=== PATIENT | male | born 1935 | race Caucasian/White ===

== ENCOUNTER 2021-05-29 03:52 | Inpatient (IN) ==
[2021-05-29] MEDS ORDERED: 0.9 % SODIUM CHLORIDE 1,000 ML IV ONE (04:11)
[2021-05-29] MEDS ORDERED: ACETAMINOPHEN 325 MG TABLET PO ONE (04:15)
--- NOTE | 2021-05-29 04:16 | Emergency Department Note ---
HPI General Chief complaint: Shortness of Breath/Dyspnea Stated complaint: shortness of breath Time Seen by Provider: 05/29/21 03:57 Source: patient, family and EMS Mode of arrival: EMS Limitations: no limitations History of Present Illness HPI Narrative: 85-year-old male with past medical history of FERMIN, aortic stenosis, diabetes, CKD, hypertension, CAD status post CABG, and BPH presenting with generalized weakness, cough, and fever. Patient states for the last 4 days he has had shortness of breath, nonproductive cough, nausea, and chills. Symptoms seemed to be getting worse so he went to urgent care yesterday where he had negative rapid Covid and influenza tests. He had a chest x-ray which showed small bilateral pleural effusions. He returned home but overnight thought he seemed more confused than usual. Patient states he also felt generally weak. No fall or head injury. This morning he continues to feel short of breath and nauseous. Does not feel dizzy at this time. No sick contacts. He has received both Covid vaccinations and a booster. He takes a baby aspirin daily. Related Data Home Medications Medication Instructions Recorded Confirmed Humulin 70/30 SUB-Q 12/14/14 05/28/21 aspirin 81 mg tablet,delayed 81 mg PO QDAY tab 12/14/14 05/29/21 release blood sugar diagnostic, disc 12/14/14 05/28/21 ferrous sulfate 325 mg (65 mg 325 mg PO BID tab 12/14/14 05/29/21 iron) tablet,delayed release hydrochlorothiazide 25 mg tablet 25 mg PO QDAY tab 12/14/14 05/28/21 lorazepam 1 mg tablet 1 mg PO .as directed PRN tab 12/14/14 05/29/21 potassium chloride 10 mEq 10 meq PO QDAY cap 12/14/14 05/29/21 capsule,extended release sennosides 8.6 mg-docusate sodium 1 tab PO QHS PRN tab 12/14/14 05/28/21 50 mg tablet simvastatin 20 mg tablet 20 mg PO QPM tab 12/14/14 05/29/21 zolpidem 10 mg tablet 10 mg PO QHS PRN tab 02/16/21 05/29/21 Previous Rx's Medication Instructions Recorded finasteride 5 mg tablet 5 mg PO QDAY 90 Days #90 tab 01/29/21 tamsulosin 0.4 mg capsule 0.8 mg PO Q24H #180 cap 02/16/21 doxycycline monohydrate 100 mg 100 mg PO BID 7 Days #14 cap 05/28/21 capsule ondansetron 8 mg disintegrating 8 mg PO Q8H PRN #10 tab 05/28/21 tablet Allergies Allergy/AdvReac Type Severity Reaction Status Date / Time metoprolol [METOPROLOL] AdvReac Intermediate FELT Verified 05/29/21 03:55 "CRAPPY", LETHARGIC, NO APPETITE Review of Systems ROS ROS Narrative: Narrative: Constitutional: Reports chills; Denies fever Eyes: Denies vision change ENT ED: Denies throat pain Cardiovascular: Denies chest pain or palpitations Respiratory: Reports shortness of breath and cough Gastrointestinal: Reports nausea; Denies abdominal pain or vomiting Genitourinary: Denies dysuria, frequency or hematuria Musculoskeletal: Denies back pain or joint swelling Integumentary: Denies rash Neurological: Reports weakness and dizziness; Denies headache or numbness Psychiatric: Denies anxiety Hematological/Lymphatic: Denies easy bruising PFSH Narrative Patient History Narrative: Narrative: Medical/Surgical/Family History All Active Problems (Updated 05/29/21 @ 07:18 by Luis Fernando Vines MD) Weakness (Acute) Viral syndrome (Acute) Actinic keratitis (Acute) Aortic stenosis (Acute) FERMIN (obstructive sleep apnea) (Acute) Colon polyps (Acute) DMII (diabetes mellitus, type 2) (Acute) Dupuytren's contracture (Acute) Edema (Acute) Hypertension, essential (Acute) Hypoxemia (Acute) Nocturia (Acute) Obesity (Acute) Plantar wart (Acute) Premature beats (Acute) Spinal stenosis (Acute) Syncope and collapse (Acute) Chronic renal failure (Acute) Hx of appendectomy (Acute) History of back surgery (Acute) H/O coronary artery bypass surgery (Acute) H/O gastric bypass (Acute) LAP-BAND surgery status (Acute) History of open heart surgery (Acute) H/O shoulder surgery (Acute) BPH w urinary obs/LUTS (Acute) Phimosis (Acute) Medical History (Updated 05/29/21 @ 07:18 by Luis Fernando Vines MD) Actinic keratitis Aortic stenosis Chronic renal failure Colon polyps DMII (diabetes mellitus, type 2) Dupuytren's contracture Edema Hematuria Hypertension, essential Hypoxemia Nocturia Obesity FERMIN (obstructive sleep apnea) polyps Plantar wart Premature beats Spinal stenosis Syncope and collapse Viral syndrome Surgical History H/O coronary artery bypass surgery H/O gastric bypass H/O shoulder surgery History of back surgery History of open heart surgery Hx of appendectomy LAP-BAND surgery status Family History Grandfather-maternal Type 2 diabetes mellitus Grandmother- maternal Type 2 diabetes mellitus Mother Type 2 diabetes mellitus Myocardial Infarction Social History Smoking Status: Former smoker Alcohol Intake Frequency: a few times a week Exam Narrative Narrative: Narrative: General Limitations: no limitations General appearance: Present alert and in no apparent distress Head Head: Present atraumatic and normocephalic Eye Eye: Present normal appearance, PERRL and EOMI; Absent scleral icterus, conjunctival injection or nystagmus ENT ENT: Present normal oropharynx and mucous membranes moist Neck Neck: Present full ROM and trachea midline Chest Chest: Present symmetric chest wall rise and other (Midline sternal scar noted) Respiratory Respiratory: Present other (Fine rales noted at bilateral bases); Absent respi ratory distress, wheezes, stridor or accessory muscle use Cardiovascular Cardiovascular: Present regular rate, normal rhythm and systolic murmur; Absent diastolic murmur Adbominal Abdominal: Present soft; Absent distention, tenderness, guarding, rebound or rigidity Extremities Extremities: Present other (1+ bilateral pitting edema of lower extremities) Back Back: Present normal inspection; Absent CVA tenderness (R) or CVA tenderness (L) Neurological Neurological: Present alert, oriented X3 and CN II-XII intact; Absent motor sensory deficit Expanded Neurological Patient oriented to: Present person, place and time Speech: Absent dysarthria CEREBELLAR FUNCTION: finger to nose: Normal Motor strength - LUE: 5/5 Motor strength - RUE: 5/5 Motor strength - LLE: 5/5 Motor strength - RLE: 5/5 SENSORY EXAM UPPER EXTREMITY: Normal: light touch SENSORY EXAM LOWER EXTREMITY: Normal: light touch Coma Scale Eye Opening: Spontaneous Coma Scale Motor Response: Obeys Commands Coma Scale Verbal Response: Oriented Coma Scale Total: 15 Psychiatric Psychiatric: Present normal affect and normal mood Skin Skin: Present warm (WNL) and dry Course Vital Signs Vital signs: Vital Signs Temperature 100.1 F H 05/29/21 03:55 Pulse Rate 82 05/29/21 03:55 Respiratory Rate 22 05/29/21 03:55 Blood Pressure 198/79 05/29/21 03:55 Pulse Oximetry (%) 97 05/29/21 03:55 Temperature 100.1 F H 05/29/21 04:26 Pulse Rate 71 05/29/21 06:41 Respiratory Rate 22 05/29/21 03:55 Blood Pressure 197/87 05/29/21 06:31 Pulse Oximetry (%) 97 05/29/21 06:41 MDM MDM Narrative Medical decision making narrative: 85-year-old male presenting with weakness, nausea, cough, and shortness of breath. He is satting between 90 and 93% on room air. Initially hypertensive to 202/92 and with a low-grade fever to 100.4F. No focal neurologic deficits noted on exam. He is not dizzy at this time. Normal saline bolus given. EKG shows no acute ischemic changes. P.o. Tylenol given for low-grade fever. Will obtain labs, imaging, UA, blood cultures and lactate. Signed out to onccricket WHITMORE, Dr. Casillas. Lab Data Result diagrams: 05/29/21 04:40 05/29/21 04:30 Labs: Lab Results 05/29/21 05/29/21 05/29/21 Range/Units 04:30 04:40 04:40 WBC 6.7 (4.5-11.0) K/mcL RBC 3.51 L (4.63-6.08) M/mcL Hgb 11.4 L (13.7-17.5) g/dL Hct 34.0 L (40.1-51.0) % MCV 96.9 (80.0-100.0) fL MCH 32.5 (26.0-34.0) pg MCHC 33.5 (31.0-36.0) g/dL RDW 12.6 (11.5-14.5) % Plt Count 130 L (140-440) K/mcL MPV 10.6 H (7.4-10.4) fL Neut % (Auto) 78.7 H (38.0-78.0) % Lymph % (Auto) 8.2 L (15.5-49.0) % [place] % (Auto) 11.9 (1.0-12.0) % Eos % (Auto) 0.9 (0.0-7.0) % Baso % (Auto) 0.3 (0.0-2.0) % Lymph # (Auto) 0.55 L (1.50-4.80) K/mcL [place] # (Auto) 0.80 (0.10-0.90) K/mcL Eos # (Auto) 0.06 (0.00-0.70) K/mcL Baso # (Auto) 0.02 (0.00-0.30) K/mcL Absolute Neutrophils 5.30 (1.80-8.00) K/mcL VBG Lactic Acid 1.4 (0.5-2.0) mmol/L Sodium 134 (133-145) mmol/L Potassium 4.2 (3.3-5.1) mmol/L Chloride 100 (96-108) mmol/L Carbon Dioxide 22 (22-30) mmol/L Anion Gap 12.0 (8.0-16.0) BUN 40 H (8-23) mg/dL Creatinine 3.4 H (0.7-1.2) mg/dL GFR Calculation 15 Glucose 178 H (70-105) mg/dL Calcium 9.7 (8.6-10.4) mg/dL Total Bilirubin 0.6 (0.1-1.0) mg/dL AST 27 (<40) U/L ALT 16 (<40) U/L Alkaline Phosphatase 64 (39-117) U/L Troponin T (<0.03) ng/mL NT-Pro-B Natriuret Pep 3119.0 H (<450.0) pg/mL Total Protein 6.7 (5.9-8.4) gm/dL Albumin 3.4 (3.2-5.2) gm/dL Globulin 3.3 (2.2-3.7) gm/dL Albumin/Globulin Ratio 1.0 (1.0-2.3) 05/29/21 Range/Units 04:43 WBC (4.5-11.0) K/mcL RBC (4.63-6.08) M/mcL Hgb (13.7-17.5) g/dL Hct (40.1-51.0) % MCV (80.0-100.0) fL MCH (26.0-34.0) pg MCHC (31.0-36.0) g/dL RDW (11.5-14.5) % Plt Count (140-440) K/mcL MPV (7.4-10.4) fL Neut % (Auto) (38.0-78.0) % Lymph % (Auto) (15.5-49.0) % [place] % (Auto) (1.0-12.0) % Eos % (Auto) (0.0-7.0) % Baso % (Auto) (0.0-2.0) % Lymph # (Auto) (1.50-4.80) K/mcL [place] # (Auto) (0.10-0.90) K/mcL Eos # (Auto) (0.00-0.70) K/mcL Baso # (Auto) (0.00-0.30) K/mcL Absolute Neutrophils (1.80-8.00) K/mcL VBG Lactic Acid (0.5-2.0) mmol/L Sodium (133-145) mmol/L Potassium (3.3-5.1) mmol/L Chloride (96-108) mmol/L Carbon Dioxide (22-30) mmol/L Anion Gap (8.0-16.0) BUN (8-23) mg/dL Creatinine (0.7-1.2) mg/dL GFR Calculation Glucose (70-105) mg/dL Calcium (8.6-10.4) mg/dL Total Bilirubin (0.1-1.0) mg/dL AST (<40) U/L ALT (<40) U/L Alkaline Phosphatase (39-117) U/L Troponin T 0.08 H* (<0.03) ng/mL NT-Pro-B Natriuret Pep (<450.0) pg/mL Total Protein (5.9-8.4) gm/dL Albumin (3.2-5.2) gm/dL Globulin (2.2-3.7) gm/dL Albumin/Globulin Ratio (1.0-2.3) Radiology Data Radiology results reviewed: Yes I reviewed the patient's radiology results. Radiology results narrative: Ordering Physician:Luis Fernando Vines M.D. Date of Service:05/29/21 Procedure(s):CT head/brain wo con INDICATION: dizziness, weakness, confusion COMPARISON: None. TECHNIQUE: Axial noncontrast-enhanced images through the brain. Sagittally and coronally reformatted images. FINDINGS: Cerebral hemispheres:No acute intra-axial hemorrhage. No focal intra-axial attenuation abnormality or localized mass effect. Brain volume is within normal limits for age. Brainstem and cerebellum:No intra-axial abnormality Extra-axial:No acute hemorrhage. No subdural or epidural hematoma. No subarachnoid hemorrhage. Basilar cisterns are normal Calvarial:No calvarial fracture. No lytic lesion Temporal bones are negative. No destructive lesions Soft tissue, orbits, sinuses:Orbits and visualized facial soft tissues and paranasal sinuses are negative IMPRESSION: Negative noncontrast enhanced brain CT scan EKG Data EKG #1: EKG attestation: Yes I reviewed and interpreted this EKG. and Yes There are no EKG findings of acute coronary syndrome EKG results narrative: Normal sinus rhythm at [address] elevation or depression. Interpretation: no acute changes Discharge Plan Patient/Caregiver Discharge Instructions Pt seen by LEVI MAKER/PA only: No Clinical Impression: Weakness Patient Disposition: Still a Patient Follow up with: Yovanny Higuera MD [Primary Care Provider] - Prescriptions: No Action finasteride 5 mg tablet 5 mg PO QDAY 90 Days Qty: 90 6RF potassium chloride 10 mEq capsule, extended release 10 meq PO QDAY 0RF sennosides-docusate sodium 8.6-50 mg tablet 1 tab PO QHS PRN (Reason: constipation) 0RF aspirin 81 mg tablet,delayed release (DR/EC) 81 mg PO QDAY 0RF simvastatin 20 mg tablet 20 mg PO QPM 0RF hydrochlorothiazide 25 mg tablet 25 mg PO QDAY 0RF lorazepam 1 mg tablet 1 mg PO .as directed PRN (Reason: Anxiety) 0RF Rx Instructions: 1 mg PO .as directed PRN (DME) blood sugar diagnostic, disc strip See Dose Instructions .ROUTE .MEDSUPPLY 0RF Rx Instructions: As directed Humulin 70/30 SUB-Q 0RF Label Comments: as per insulin protocol ferrous sulfate 325 mg (65 mg iron) tablet,delayed release (DR/EC) 325 mg PO BID 0RF zolpidem 10 mg tablet 10 mg PO QHS PRN (Reason: Insomnia) 0RF doxycycline monohydrate 100 mg capsule 100 mg PO BID 7 Days Qty: 14 0RF Rx Instructions: Take with food. ondansetron 8 mg tablet,disintegrating 8 mg PO Q8H PRN (Reason: nausea and vomiting) Qty: 10 0RF tamsulosin 0.4 mg capsule 0.8 mg PO Q24H Qty: 180 3RF
[2021-05-29 05:52] LABS: Basophils # (Auto) 0.02 K/mcL (0.00-0.30); Basophils % (Auto) 0.3 % (0.0-2.0); Eosinophils # (Auto) 0.06 K/mcL (0.00-0.70); Eosinophils % (Auto) 0.9 % (0.0-7.0); Hemoglobin 11.4 g/dL (13.7-17.5); Lymphocytes # (Auto) 0.55 K/mcL (1.50-4.80); Lymphocytes % (Auto) 8.2 % (15.5-49.0); Mean Cell Volume 96.9 fL (80.0-100.0); Mean Corpuscular HGB Conc 33.5 g/dL (31.0-36.0); Mean Platelet Volume 10.6 fL (7.4-10.4); Monocytes % (Auto) 11.9 % (1.0-12.0); Neutrophils % (Auto) 78.7 % (38.0-78.0); Platelet Count 130 K/mcL (140-440); RBC 3.51 M/mcL (4.63-6.08); Red Cell Distribution Width 12.6 % (11.5-14.5); WBC 6.7 K/mcL (4.5-11.0)
[2021-05-29] MEDS ORDERED: cloNIDine HCL 0.1 MG TABLET PO SCH (06:00)
[2021-05-29 06:15] LABS: ALT/SGPT 16 U/L (<40); AST/SGOT 27 U/L (<40); Albumin 3.4 gm/dL (3.2-5.2); Alkaline Phosphatase 64 U/L (39-117); Bilirubin,Total 0.6 mg/dL (0.1-1.0); Blood Urea Nitrogen 40 mg/dL (8-23); Calcium 9.7 mg/dL (8.6-10.4); Carbon Dioxide 22 mmol/L (22-30); Chloride 100 mmol/L (96-108); Globulin 3.3 gm/dL (2.2-3.7); Glomerular Filtration Rate 15; Glucose 178 mg/dL (70-105)
--- NOTE | 2021-05-29 06:20 | Cat Scan Report ---
INDICATION: dizziness, weakness, confusion COMPARISON: None. TECHNIQUE: Axial noncontrast-enhanced images through the brain. Sagittally and coronally reformatted images. FINDINGS: Cerebral hemispheres:No acute intra-axial hemorrhage. No focal intra-axial attenuation abnormality or localized mass effect. Brain volume is within normal limits for age. Brainstem and cerebellum:No intra-axial abnormality Extra-axial:No acute hemorrhage. No subdural or epidural hematoma. No subarachnoid hemorrhage. Basilar cisterns are normal Calvarial:No calvarial fracture. No lytic lesion Temporal bones are negative. No destructive lesions Soft tissue, orbits, sinuses:Orbits and visualized facial soft tissues and paranasal sinuses are negative IMPRESSION: Negative noncontrast enhanced brain CT scan The exam was performed using radiation dose optimization techniques including, but not limited to, automated exposure control, adjustment of the mA and/or kV according to patient size and use of iterative reconstruction technique. Interpreted and Authenticated by: Constantin Saldaña 05/29/21
--- NOTE | 2021-05-29 07:50 | Emergency Department Note ---
Course Course Course Narrative: I assumed care from Dr. Vines at the change of shift. I evaluated the patient in person at 7:40 AM. He is resting comfortably in bed and awakens to verbal stimuli. He has been experiencing several days of generalized malaise chills cough shortness of breath and mild confusion that his is appreciated. On exam, he is in no respiratory distress with oxygen saturations in the low 90s on 2 L supplemental oxygen via nasal cannula. He is oriented to time place and situation and is able to name the current president as well as the past 2 presidents but does have some difficulty remembering the date and the month. Vital Signs Vital signs: Vital Signs Temperature 100.1 F H 05/29/21 03:55 Pulse Rate 82 05/29/21 03:55 Respiratory Rate 22 05/29/21 03:55 Blood Pressure 198/79 05/29/21 03:55 Pulse Oximetry (%) 97 05/29/21 03:55 Temperature 100.1 F H 05/29/21 07:40 Pulse Rate 69 05/29/21 07:40 Respiratory Rate 22 05/29/21 07:40 Blood Pressure 155/89 05/29/21 07:40 Pulse Oximetry (%) 95 05/29/21 07:40 MDM MDM Narrative Medical decision making narrative: Narrative: Lab Data Result diagrams: 05/29/21 04:40 05/29/21 04:30 Labs: Lab Results 05/29/21 05/29/21 05/29/21 Range/Units 04:30 04:40 04:40 WBC 6.7 (4.5-11.0) K/mcL RBC 3.51 L (4.63-6.08) M/mcL Hgb 11.4 L (13.7-17.5) g/dL Hct 34.0 L (40.1-51.0) % MCV 96.9 (80.0-100.0) fL MCH 32.5 (26.0-34.0) pg MCHC 33.5 (31.0-36.0) g/dL RDW 12.6 (11.5-14.5) % Plt Count 130 L (140-440) K/mcL MPV 10.6 H (7.4-10.4) fL Neut % (Auto) 78.7 H (38.0-78.0) % Lymph % (Auto) 8.2 L (15.5-49.0) % [place] % (Auto) 11.9 (1.0-12.0) % Eos % (Auto) 0.9 (0.0-7.0) % Baso % (Auto) 0.3 (0.0-2.0) % Lymph # (Auto) 0.55 L (1.50-4.80) K/mcL [place] # (Auto) 0.80 (0.10-0.90) K/mcL Eos # (Auto) 0.06 (0.00-0.70) K/mcL Baso # (Auto) 0.02 (0.00-0.30) K/mcL Absolute Neutrophils 5.30 (1.80-8.00) K/mcL VBG Lactic Acid 1.4 (0.5-2.0) mmol/L Sodium 134 (133-145) mmol/L Potassium 4.2 (3.3-5.1) mmol/L Chloride 100 (96-108) mmol/L Carbon Dioxide 22 (22-30) mmol/L Anion Gap 12.0 (8.0-16.0) BUN 40 H (8-23) mg/dL Creatinine 3.4 H (0.7-1.2) mg/dL GFR Calculation 15 Glucose 178 H (70-105) mg/dL Calcium 9.7 (8.6-10.4) mg/dL Total Bilirubin 0.6 (0.1-1.0) mg/dL AST 27 (<40) U/L ALT 16 (<40) U/L Alkaline Phosphatase 64 (39-117) U/L Troponin T (<0.03) ng/mL NT-Pro-B Natriuret Pep 3119.0 H (<450.0) pg/mL Total Protein 6.7 (5.9-8.4) gm/dL Albumin 3.4 (3.2-5.2) gm/dL Globulin 3.3 (2.2-3.7) gm/dL Albumin/Globulin Ratio 1.0 (1.0-2.3) 05/29/21 Range/Units 04:43 WBC (4.5-11.0) K/mcL RBC (4.63-6.08) M/mcL Hgb (13.7-17.5) g/dL Hct (40.1-51.0) % MCV (80.0-100.0) fL MCH (26.0-34.0) pg MCHC (31.0-36.0) g/dL RDW (11.5-14.5) % Plt Count (140-440) K/mcL MPV (7.4-10.4) fL Neut % (Auto) (38.0-78.0) % Lymph % (Auto) (15.5-49.0) % [place] % (Auto) (1.0-12.0) % Eos % (Auto) (0.0-7.0) % Baso % (Auto) (0.0-2.0) % Lymph # (Auto) (1.50-4.80) K/mcL [place] # (Auto) (0.10-0.90) K/mcL Eos # (Auto) (0.00-0.70) K/mcL Baso # (Auto) (0.00-0.30) K/mcL Absolute Neutrophils (1.80-8.00) K/mcL VBG Lactic Acid (0.5-2.0) mmol/L Sodium (133-145) mmol/L Potassium (3.3-5.1) mmol/L Chloride (96-108) mmol/L Carbon Dioxide (22-30) mmol/L Anion Gap (8.0-16.0) BUN (8-23) mg/dL Creatinine (0.7-1.2) mg/dL GFR Calculation Glucose (70-105) mg/dL Calcium (8.6-10.4) mg/dL Total Bilirubin (0.1-1.0) mg/dL AST (<40) U/L ALT (<40) U/L Alkaline Phosphatase (39-117) U/L Troponin T 0.08 H* (<0.03) ng/mL NT-Pro-B Natriuret Pep (<450.0) pg/mL Total Protein (5.9-8.4) gm/dL Albumin (3.2-5.2) gm/dL Globulin (2.2-3.7) gm/dL Albumin/Globulin Ratio (1.0-2.3) Discharge Plan Patient/Caregiver Discharge Instructions Pt seen by ASSISTED LIVING CARE MANAGER/PA only: No Clinical Impression: Weakness Patient Disposition: Still a Patient Follow up with: Yovanny Higuera MD [Primary Care Provider] - Prescriptions: No Action finasteride 5 mg tablet 5 mg PO QDAY 90 Days Qty: 90 6RF potassium chloride 10 mEq capsule, extended release 10 meq PO QDAY 0RF sennosides-docusate sodium 8.6-50 mg tablet 1 tab PO QHS PRN (Reason: constipation) 0RF aspirin 81 mg tablet,delayed release (DR/EC) 81 mg PO QDAY 0RF simvastatin 20 mg tablet 20 mg PO QPM 0RF hydrochlorothiazide 25 mg tablet 25 mg PO QDAY 0RF lorazepam 1 mg tablet 1 mg PO .as directed PRN (Reason: Anxiety) 0RF Rx Instructions: 1 mg PO .as directed PRN (DME) blood sugar diagnostic, disc strip See Dose Instructions .ROUTE .MEDSUPPLY 0RF Rx Instructions: As directed Humulin 70/30 SUB-Q 0RF Label Comments: as per insulin protocol ferrous sulfate 325 mg (65 mg iron) tablet,delayed release (DR/EC) 325 mg PO BID 0RF zolpidem 10 mg tablet 10 mg PO QHS PRN (Reason: Insomnia) 0RF doxycycline monohydrate 100 mg capsule 100 mg PO BID 7 Days Qty: 14 0RF Rx Instructions: Take with food. ondansetron 8 mg tablet,disintegrating 8 mg PO Q8H PRN (Reason: nausea and vomiting) Qty: 10 0RF tamsulosin 0.4 mg capsule 0.8 mg PO Q24H Qty: 180 3RF
--- NOTE | 2021-05-29 08:13 | XRay Report ---
INDICATION: CHF TECHNIQUE: AP portable upright chest x-ray COMPARISON: Previous chest x-ray dated 05/28/2021 FINDINGS:Previous median sternotomy and coronary artery bypass procedure Lungs:Lungs are negative. No focal pulmonary parenchymal infiltrate or mass Heart, vascular:No significant cardiomegaly. Pulmonary vascularity is normal. No pulmonary edema or pulmonary congestion Mediastinum, marc:No mediastinal widening. No hilar mass Pleura:No pleural fluid. No pleural-based mass or calcification Skeletal:Nonacute healed right rib fractures. Degenerative joint disease in the right acromioclavicular joint. Previous left Fernando procedure IMPRESSION: Negative AP chest x-ray Interpreted and Authenticated by: Constantin Saldaña 05/29/21
[2021-05-29] MEDS ORDERED: FUROSEMIDE 100 MG/10 ML VIAL IV ONE (08:39)
[2021-05-29 09:06] LABS: Appearance,Urine HAZY (Clear); Bilirubin,Urine Negative (Negative); Color,Urine YELLOW; Culture Indicated,Urine No; Glucose,Urine (UA) 50 mg/dL (Negative); Ketones,Urine 5 mg/dL (Negative); Leukocyte Esterase,Urine 25 /uL (Negative); Mucus,Urine FEW /hpf; Nitrate,Urine Negative (Negative); Protein,Urine 100 mg/dL (Negative); Specific Gravity,Urine 1.015 (1.000-1.035); Urine Blood Negative (Negative); Urine RBC 1 /hpf (0-3); Urine Squamous Epithelial Cell 2 /hpf (0-4); Urine Transitional Epi Cells < 1 /hpf (0-2); Urine WBC 5 /hpf (0-4); Urobilinogen,Urine Negative
--- NOTE | 2021-05-29 11:53 | Cat Scan Report ---
INDICATION: pneumonia COMPARISON: None TECHNIQUE: Axial noncontrast enhanced images through the chest. Sagittally and coronally reformatted images. MIP reformatted images. FINDINGS: Lungs:Mild bilateral lower lobe pulmonary parenchymal density consistent with atelectasis. Lungs are otherwise negative. No parenchymal mass. Mediastinum, vascular:No pathologic mediastinal or hilar adenopathy Thoracic aorta is negative. No aneurysmal dilatation Main pulmonary artery measures 3.2 cm in cross-sectional diameter. This may indicate pulmonary arterial hypertension Heart:There is left atrial enlargement. No pericardial effusion. There is extensive coronary artery calcification. Patient has undergone previous coronary artery bypass Pleura:Small bilateral pleural effusions, left larger than right Axilla, supraclavicular regions, chest wall:No axillary or supraclavicular adenopathy. Musculoskeletal:No thoracic compression fractures. Previous median sternotomy. No rib fractures. Upper Abdomen:Small calcified gallstones in the dependent portion of the gallbladder lumen IMPRESSION: 1. Severe coronary artery calcification. Previous coronary artery bypass procedure 2. Small bilateral pleural effusions, left larger than right. There is mild dependent bilateral lower lobe atelectasis 3. Left atrial enlargement 4. Mildly enlarged pulmonary artery consistent with pulmonary arterial hypertension 5. Cholelithiasis The exam was performed using radiation dose optimization techniques including, but not limited to, automated exposure control, adjustment of the mA and/or kV according to patient size and use of iterative reconstruction technique. Interpreted and Authenticated by: Constantin Saldaña 05/29/21
[2021-05-29] MEDS ORDERED: ALBUTEROL SULFATE 200 PUFF INHALER INH PRN (13:51)
[2021-05-29] MEDS ORDERED: MELATONIN 3 MG TABLET PO PRN (13:51)
[2021-05-29] MEDS ORDERED: MAGNESIUM SULFATE 2 GM/50 ML BAG IV PRN (13:51)
[2021-05-29] MEDS ORDERED: guaiFENesin/CODEINE 10 ML UDC PO PRN (13:51)
[2021-05-29] MEDS ORDERED: ONDANSETRON 4 MG/2 ML VIAL IV PRN (13:51)
[2021-05-29] MEDS ORDERED: ACETAMINOPHEN 325 MG TABLET PO PRN (13:51)
[2021-05-29] MEDS ORDERED: ONDANSETRON 4 MG ODT TABLET SL PRN (13:51)
[2021-05-29] MEDS ORDERED: DEXTROSE 31 GM ORAL.SUSP PO PRN (13:51)
[2021-05-29] MEDS ORDERED: POTASSIUM CHLORIDE 20 MEQ PACKET PO PRN (13:51)
[2021-05-29] MEDS ORDERED: METOPROLOL TARTRATE 5 MG/5 ML VIAL IV PRN (13:51)
[2021-05-29] MEDS ORDERED: ACETAMINOPHEN 650 MG/65 ML BAG IV PRN (13:51)
[2021-05-29] MEDS ORDERED: POTASSIUM CHLORIDE 40 MEQ in DEXTROSE 5% IN WATER 500 ML IV PRN (13:51)
[2021-05-29] MEDS ORDERED: POLYETHYLENE GLYCOL 3350 17 GM PACKET PO PRN (13:51)
[2021-05-29] MEDS ORDERED: ONDANSETRON 8 MG PO PRN (13:51)
[2021-05-29] MEDS ORDERED: DEXTROSE 50% 50 ML VIAL IV PRN (13:51)
--- NOTE | 2021-05-29 13:55 | Internal Med History&Physical ---
HPI History of Present Illness Patient information: Note initiated : 05/29/21 at 1:55 pm Service Date, if different from initiated Date: [] Patient: Manny Flaherty a 85 y/o M admitted on 05/29/21 for shortness of breath. Chief Complaint: [] Chief complaint: Weakness nausea shortness of breath History of present illness: Mr. Flaherty is a 85 year old M with a history of DM type II/HLD/HTN/BPH who presents to the ER with 5 days onset of worsening shortness of breath, malaise, weakness, runny nose, body ache nausea and loss of appetite. Patient endorses to subjective fever but denies shaking chills, rash, diarrhea, joint pain or photophobia. With worsening symptoms and inability to function he presents to the urgent care for evaluation. After initial evaluation he was discharged on doxycycline for suspected pneumonia. However his symptoms continue to persist with increasing shortness of breath and he returns to ER today. Repeat work-up was consistent with hypoxia requiring 3 L oxygen and worsening renal function. CT chest consistent with bilateral effusion/basilar infiltrates. Patient was started on diuretics in light of elevated BNP Hospitalist service was consulted in light of suspected pneumonia/CHF and hypoxic respiratory failure At the time of my evaluation patient is alert and oriented. He was able to endorse history as above. He denies sick contacts but endorses to URI symptom including runny nose. He denies changes in medications. Review of systems 10 point review system was performed and is negative except as above PFSH PFSH All Active Problems (Updated 05/29/21 @ 07:18 by Luis Fernando Vines MD) Weakness (Acute) Viral syndrome (Acute) Actinic keratitis (Acute) Aortic stenosis (Acute) FERMIN (obstructive sleep apnea) (Acute) Colon polyps (Acute) DMII (diabetes mellitus, type 2) (Acute) Dupuytren's contracture (Acute) Edema (Acute) Hypertension, essential (Acute) Hypoxemia (Acute) Nocturia (Acute) Obesity (Acute) Plantar wart (Acute) Premature beats (Acute) Spinal stenosis (Acute) Syncope and collapse (Acute) Chronic renal failure (Acute) Hx of appendectomy (Acute) History of back surgery (Acute) H/O coronary artery bypass surgery (Acute) H/O gastric bypass (Acute) LAP-BAND surgery status (Acute) History of open heart surgery (Acute) H/O shoulder surgery (Acute) BPH w urinary obs/LUTS (Acute) Phimosis (Acute) Medical History (Updated 05/29/21 @ 07:18 by Luis Fernando Vines MD) Actinic keratitis Aortic stenosis Chronic renal failure Colon polyps DMII (diabetes mellitus, type 2) Dupuytren's contracture Edema Hematuria Hypertension, essential Hypoxemia Nocturia Obesity FERMIN (obstructive sleep apnea) polyps Plantar wart Premature beats Spinal stenosis Syncope and collapse Viral syndrome Surgical History H/O coronary artery bypass surgery H/O gastric bypass H/O shoulder surgery History of back surgery History of open heart surgery Hx of appendectomy LAP-BAND surgery status Family History Grandfather-maternal Type 2 diabetes mellitus Grandmother- maternal Type 2 diabetes mellitus Mother Type 2 diabetes mellitus Myocardial Infarction Social History alcohol intake frequency: a few times a week MEDS/ALLERGIES Home Medications and Allergies Home Medications Medication Instructions Recorded Confirmed Type Humulin 70/30 SUB-Q 12/14/14 05/28/21 History aspirin 81 mg tablet,delayed 81 mg PO QDAY tab 12/14/14 05/29/21 History release blood sugar diagnostic, disc 12/14/14 05/28/21 History ferrous sulfate 325 mg (65 mg 325 mg PO BID tab 12/14/14 05/29/21 History iron) tablet,delayed release lorazepam 1 mg tablet 1 mg PO .as directed PRN tab 12/14/14 05/29/21 History simvastatin 20 mg tablet 20 mg PO QPM tab 12/14/14 05/29/21 History finasteride 5 mg tablet 5 mg PO QDAY 90 Days #90 tab 01/29/21 05/29/21 Rx tamsulosin 0.4 mg capsule 0.8 mg PO Q24H #180 cap 02/16/21 05/29/21 Rx zolpidem 10 mg tablet 10 mg PO QHS PRN tab 02/16/21 05/29/21 History doxycycline monohydrate 100 mg 100 mg PO BID 7 Days #14 cap 05/28/21 05/29/21 Rx capsule ondansetron 8 mg disintegrating 8 mg PO Q8H PRN #10 tab 05/28/21 05/29/21 Rx tablet Allergies Allergy/AdvReac Type Severity Reaction Status Date / Time metoprolol [METOPROLOL] AdvReac Intermediate FELT Verified 05/29/21 03:55 "CRAPPY", LETHARGIC, NO APPETITE EXAM Constitutional Vitals: Temp Pulse Resp BP Pulse Ox 100.1 F H 56 L 22 188/91 98 05/29/21 07:40 05/29/21 12:45 05/29/21 07:40 05/29/21 13:00 05/29/21 12:45 Alert oriented, minimal anxiety Head normocephalic Oral cavity moist No ear or nose discharge Eye no subconjunctival pallor, movement symmetrical S1-S2 occasionally irregular Nonlabored breathing on 3 L oxygen Nondistended nontender abdomen Lower extremity no cyanosis clubbing or joint swelling Skin no suspicious lesion Psych anxious but no hallucination Neuro normal higher function, GCS 14 DATA Data Completed and Pending Labs: Labs from last 24 hours 05/29/21 05/29/21 05/29/21 07:30 04:43 04:40 WBC RBC Hgb Hct MCV MCH MCHC RDW Plt Count MPV Neut % (Auto) Lymph % (Auto) [place] % (Auto) Eos % (Auto) Baso % (Auto) Lymph # (Auto) [place] # (Auto) Eos # (Auto) Baso # (Auto) Absolute Neutrophils VBG Lactic Acid 1.4 Sodium Potassium Chloride Carbon Dioxide Anion Gap BUN Creatinine GFR Calculation Glucose Calcium Total Bilirubin AST ALT Alkaline Phosphatase Troponin T 0.08 H* NT-Pro-B Natriuret Pep Total Protein Albumin Globulin Albumin/Globulin Ratio Urine Color Yellow Urine Appearance Hazy A Urine pH 6.0 Ur Specific [place] 1.015 Urine Protein 100 A Urine Glucose (UA) 50 A Urine Ketones 5 A Urine Occult Blood Negative Urine Nitrate Negative Urine Bilirubin Negative Urine Urobilinogen Negative Ur Leukocyte Esterase 25 A Urine RBC 1 Urine WBC 5 H Ur Squamous Epith Cells 2 Ur Transition Epith Cell < 1 Urine Bacteria None Urine Mucus Few A Ur Culture Indicated? No 05/29/21 05/29/21 04:40 04:30 WBC 6.7 RBC 3.51 L Hgb 11.4 L Hct 34.0 L MCV 96.9 MCH 32.5 MCHC 33.5 RDW 12.6 Plt Count 130 L MPV 10.6 H Neut % (Auto) 78.7 H Lymph % (Auto) 8.2 L [place] % (Auto) 11.9 Eos % (Auto) 0.9 Baso % (Auto) 0.3 Lymph # (Auto) 0.55 L [place] # (Auto) 0.80 Eos # (Auto) 0.06 Baso # (Auto) 0.02 Absolute Neutrophils 5.30 VBG Lactic Acid Sodium 134 Potassium 4.2 Chloride 100 Carbon Dioxide 22 Anion Gap 12.0 BUN 40 H Creatinine 3.4 H GFR Calculation 15 Glucose 178 H Calcium 9.7 Total Bilirubin 0.6 AST 27 ALT 16 Alkaline Phosphatase 64 Troponin T NT-Pro-B Natriuret Pep 3119.0 H Total Protein 6.7 Albumin 3.4 Globulin 3.3 Albumin/Globulin Ratio 1.0 Urine Color Urine Appearance Urine pH Ur Specific [place] Urine Protein Urine Glucose (UA) Urine Ketones Urine Occult Blood Urine Nitrate Urine Bilirubin Urine Urobilinogen Ur Leukocyte Esterase Urine RBC Urine WBC Ur Squamous Epith Cells Ur Transition Epith Cell Urine Bacteria Urine Mucus Ur Culture Indicated? A/P Narrative A/P Narrative: * Suspected COVID-19 pneumonia-supplemental oxygen/Covid PCR/influenza test,, antibiotic coverage. * Acute respiratory failure with hypoxia continue supplemental oxygen, pulmonary toilet/bronchodilators, rule out cardiac etiology, echocardiogram * History of DM type II continue basal panel insulin * History of CKD stage IV, continue monitor renal function and avoid nephrotoxins * Hyperlipidemia continue statin * BPH continue tamsulosin/finasteride * Prophylaxis heparin Plan * Inpatient admission * Antibiotic coverage * Supplemental oxygen * Echocardiogram * COVID-19 PCR/influenza testing * Pre-existing medical condition management as above * Nutrition support/therapies * Discharge planning Time Spent With Patient Time: Total time spent is greater than 50% in coordination of care (as documented) at patient's floor/unit and/or counseling patient:
[2021-05-29] MEDS ORDERED: LORazepam 1 MG TABLET PO PRN (13:57)
[2021-05-29] MEDS ORDERED: ZOLPIDEM 5 MG TABLET PO PRN (13:58)
[2021-05-29 15:27] LABS: Ferritin 172.3 ng/mL (30.0-400.0)
[2021-05-29] MEDS: INSULIN LISPRO 1 UNIT/0.01 ML UNIT SQ SCH ×3 (15:38→21:47)
[2021-05-29] MEDS: 0.9 % SODIUM CHLORIDE 10 ML SYRINGE IV SCH ×2 (15:39→21:47)
[2021-05-29] MEDS: AZITHROMYCIN 500 MG in DEXTROSE 5% IN WATER 250 ML IV SCH (16:15)
[2021-05-29] MEDS: IPRATROPIUM/ALBUTEROL 3 ML AMPUL.NEB NEB SCH ×3 (17:19→22:28)
[2021-05-29] MEDS: hydrALAZINE 20 MG/ML VIAL IV PRN (17:19)
[2021-05-29] MEDS: SIMVASTATIN 20 MG TABLET PO SCH (21:46)
[2021-05-29] MEDS: TAMSULOSIN 0.4 MG CAPSULE PO SCH (21:46)
[2021-05-29] MEDS: SENNOSIDES/DOCUSATE SODIUM 1 TAB TABLET PO SCH (21:47)
[2021-05-29] MEDS: DOCUSATE SODIUM 100 MG CAPSULE PO SCH (21:47)
[2021-05-29] MEDS: HEPARIN 5,000 UNIT/ML VIAL SQ SCH (21:47)
[2021-05-30] MEDS: IPRATROPIUM/ALBUTEROL 3 ML AMPUL.NEB NEB SCH ×6 (03:52→23:15)
[2021-05-30] MEDS: 0.9 % SODIUM CHLORIDE 10 ML SYRINGE IV SCH ×3 (04:00→21:11)
[2021-05-30 07:13] LABS: Basophils # (Auto) 0.02 K/mcL (0.00-0.30); Basophils % (Auto) 0.4 % (0.0-2.0); Eosinophils # (Auto) 0.18 K/mcL (0.00-0.70); Eosinophils % (Auto) 3.9 % (0.0-7.0); Hematocrit 30.9 % (40.1-51.0); Hemoglobin 9.9 g/dL (13.7-17.5); Lymphocytes # (Auto) 1.03 K/mcL (1.50-4.80); Lymphocytes % (Auto) 22.6 % (15.5-49.0); Mean Cell Volume 97.5 fL (80.0-100.0); Mean Platelet Volume 10.7 fL (7.4-10.4); Monocytes % (Auto) 15.4 % (1.0-12.0); Neutrophils % (Auto) 57.7 % (38.0-78.0); Platelet Count 115 K/mcL (140-440); RBC 3.17 M/mcL (4.63-6.08); Red Cell Distribution Width 12.6 % (11.5-14.5); WBC 4.6 K/mcL (4.5-11.0)
[2021-05-30 07:38] LABS: ALT/SGPT 12 U/L (<40); AST/SGOT 21 U/L (<40); Albumin 2.8 gm/dL (3.2-5.2); Alkaline Phosphatase 54 U/L (39-117); Bilirubin,Direct < 0.2 mg/dL (0-0.3); Bilirubin,Total 0.4 mg/dL (0.1-1.0); Blood Urea Nitrogen 38 mg/dL (8-23); Calcium 8.3 mg/dL (8.6-10.4); Carbon Dioxide 23 mmol/L (22-30); Chloride 103 mmol/L (96-108); Globulin 2.8 gm/dL (2.2-3.7); Glomerular Filtration Rate 16; Glucose 169 mg/dL (70-105); Lactate Dehydrogenase 210 U/L (135-225); Phosphorous 4.6 mg/dL (2.5-4.5); Triglycerides 71 mg/dL (<150)
[2021-05-30] MEDS: MULTIVIT,THER IRON,CA,FA & MIN 1 TABLET PO SCH (08:10)
[2021-05-30] MEDS: sitaGLIPtin 100 MG TABLET PO SCH (08:10)
[2021-05-30] MEDS: ASPIRIN 81 MG TAB.CHEW PO SCH (08:10)
[2021-05-30] MEDS: INSULIN LISPRO 1 UNIT/0.01 ML UNIT SQ SCH ×4 (08:10→21:12)
[2021-05-30] MEDS: FINASTERIDE 5 MG TABLET PO SCH (08:10)
[2021-05-30] MEDS: POTASSIUM CHLORIDE 10 MEQ TABLET PO SCH (08:10)
[2021-05-30] MEDS: HEPARIN 5,000 UNIT/ML VIAL SQ SCH ×2 (08:11→21:12)
[2021-05-30] MEDS: DOCUSATE SODIUM 100 MG CAPSULE PO SCH ×2 (08:11→21:12)
[2021-05-30] MEDS: AZITHROMYCIN 500 MG in DEXTROSE 5% IN WATER 250 ML IV SCH (09:05)
[2021-05-30] MEDS: TIOTROPIUM BROMIDE 18 MCG INHALANT INH SCH (09:25)
--- NOTE | 2021-05-30 11:11 | Internal Med Progress Note ---
SUBJECTIVE Subjective Patient information: Note initiated : 05/30/21 at 11:06 am Service Date, if different from initiated Date: [] Patient: Manny Flaherty 85 y/o M admitted on 05/29/21 for shortness of breath. Chief Complaint: [] Interval history: Mr. Flaherty is a 85 year old M with a history of DM type II/HLD/HTN/BPH who presents to the ER with 5 days onset of worsening shortness of breath, malaise, weakness, runny nose, body ache nausea and loss of appetite. Patient endorses to subjective fever but denies shaking chills, rash, diarrhea, joint pain or photophobia. With worsening symptoms and inability to function he presents to the urgent care for evaluation. After initial evaluation he was discharged on doxycycline for suspected pneumonia. However his symptoms continue to persist with increasing shortness of breath and he returns to ER today. Repeat work-up was consistent with hypoxia requiring 3 L oxygen and worsening renal function. CT chest consistent with bilateral effusion/basilar infiltrates. Patient was started on diuretics in light of elevated BNP Hospitalist service was consulted in light of suspected pneumonia/CHF and hypoxic respiratory failure At the time of my evaluation patient is alert and oriented. He was able to endorse history as above. He denies sick contacts but endorses to URI symptom including runny nose. He denies changes in medications. 05/30-patient feels a lot better this morning. Improved shortness of breath on 1 L oxygen, patient denies lightheadedness weakness shaking chills or fever. COVID-19/influenza test negative. White count 4.6, creatinine 3.3, pro-[place] 0.45, continue supportive treatments. Constitutional Vitals: Vital Signs Temp Pulse Resp BP Pulse Ox 98.2 F 64 16 129/60 93 05/30/21 06:39 05/30/21 07:14 05/30/21 07:14 05/30/21 06:39 05/30/21 07:07 Period Temp Pulse Resp BP Sys/Conrad Pulse Ox Last 24 Hr 97.4 F-98.7 F 56-72 16-22 129-202/60-100 91-99 Intake and Output 05/29/21 05/30/21 05/30/21 21:59 05:59 13:59 Intake Total 250 200 260 Output Total 701 150 150 Balance -451 50 110 Weight 123.15 kg Alert oriented Nonlabored breathing on 1 L oxygen No anxiety Nondistended abdomen Intake & Output: Intake & Output 05/29/21 05/30/21 05/30/21 21:59 05:59 13:59 Intake Total 250 200 260 Output Total 701 150 150 Balance -451 50 110 Weight 123.15 kg Intake: IV 250 260 Zithromax 500 mg In Dextrose 5% 250 260 in Water 250 ml @ 250 mls/hr IV Q24H [facility] Rx#:[id number] Oral 200 Output: Void Amount 700 150 150 # of times incontinent of urine 1 Other: Meal Breakfast Percent of Meal Consumed 100% Feeding Ability Independent Urine Appearance Clear Clear Urine Color Bright Yellow Bright Yellow Urine Odor Normal # Voids 1 1 OBJ DATA Labs CBC & Chem 7: 05/30/21 05:26 05/30/21 05:26 Labs: Abnormal Lab Results 05/30/21 05/30/21 05/29/21 05:26 05:26 14:00 RBC 3.17 L Hgb 9.9 L Hct 30.9 L Plt Count 115 L MPV 10.7 H Neut % (Auto) Lymph % (Auto) [place] % (Auto) 15.4 H Lymph # (Auto) 1.03 L ESR BUN 38 H Creatinine 3.3 H Glucose 169 H Calcium 8.3 L Phosphorus 4.6 H Troponin T C-Reactive Protein NT-Pro-B Natriuret Pep Total Protein 5.6 L Albumin 2.8 L Procalcitonin 0.45 H Urine Appearance Urine Protein Urine Glucose (UA) Urine Ketones Ur Leukocyte Esterase Urine WBC Urine Mucus 05/29/21 05/29/21 05/29/21 14:00 14:00 07:30 RBC Hgb Hct Plt Count MPV Neut % (Auto) Lymph % (Auto) [place] % (Auto) Lymph # (Auto) ESR 35 H BUN Creatinine Glucose Calcium Phosphorus Troponin T C-Reactive Protein 3.20 H NT-Pro-B Natriuret Pep Total Protein Albumin Procalcitonin Urine Appearance Hazy A Urine Protein 100 A Urine Glucose (UA) 50 A Urine Ketones 5 A Ur Leukocyte Esterase 25 A Urine WBC 5 H Urine Mucus Few A 05/29/21 05/29/21 05/29/21 04:43 04:40 04:30 RBC 3.51 L Hgb 11.4 L Hct 34.0 L Plt Count 130 L MPV 10.6 H Neut % (Auto) 78.7 H Lymph % (Auto) 8.2 L [place] % (Auto) Lymph # (Auto) 0.55 L ESR BUN 40 H Creatinine 3.4 H Glucose 178 H Calcium Phosphorus Troponin T 0.08 H* C-Reactive Protein NT-Pro-B Natriuret Pep 3119.0 H Total Protein Albumin Procalcitonin Urine Appearance Urine Protein Urine Glucose (UA) Urine Ketones Ur Leukocyte Esterase Urine WBC Urine Mucus Meds: Medications Acetaminophen (Acetaminophen 325 Mg Tablet) 650 mg PO Q4-6HP PRN; Protocol PRN Reason: Per Pain Protocol/Fever > 101 Albuterol Sulfate (Albuterol Sulfate 200 Puff Inhaler) 1 - 2 puff INH Q4HP PRN PRN Reason: Shortness Of Breath Albuterol/Ipratropium (Ipratropium/Albuterol 3 Ml Ampul.Neb) 3 ml NEB Q4HRT [facility] Last Admin: 05/30/21 07:07 Dose: 3 ml Documented by: Aspirin (Aspirin 81 Mg Tab.Chew) 81 mg PO DAILY [facility] Last Admin: 05/30/21 08:10 Dose: 81 mg Documented by: Dextrose (Dextrose 50% 50 Ml Vial) 0 ml IV UD PRN PRN Reason: Hypoglycemia Diagnostic Test (Pha) (Accu-Chek 1 Each Strip) 1 each FS ACHS [facility] Last Admin: 05/30/21 06:38 Dose: 1 each Documented by: Docusate Sodium (Docusate Sodium 100 Mg Capsule) 100 mg PO BID [facility] Last Admin: 05/30/21 08:11 Dose: 100 mg Documented by: Finasteride (Finasteride 5 Mg Tablet) 5 mg PO QDAY [facility] Last Admin: 05/30/21 08:10 Dose: 5 mg Documented by: Glucose (Dextrose 31 Gm Oral.Susp) 15 gm PO PRN PRN PRN Reason: Hypoglycemia Guaifenesin/Codeine Phosphate (Guaifenesin/Codeine 10 Ml Udc) 10 ml PO Q4HP PRN PRN Reason: Cough Heparin Sodium (Porcine) (Heparin 5,000 Unit/Ml Vial) 5,000 unit SQ Q12 [facility] Last Admin: 05/30/21 08:11 Dose: 5,000 unit Documented by: Hydralazine HCl (Hydralazine 20 Mg/Ml Vial) 10 mg IV Q4-6HP PRN PRN Reason: Hypertension Last Admin: 05/29/21 17:19 Dose: 10 mg Documented by: Potassium Chloride 40 meq/ (Dextrose) 520 mls @ 130 mls/hr IV UD PRN PRN Reason: K+ = or < 3.5 Acetaminophen (Ofirmev) 650 mg in 65 mls @ 130 mls/hr IV Q6HP PRN; Protocol PRN Reason: Per Pain Protocol/Fever > 101 Magnesium Sulfate (Magnesium Sulfate) 2 gm in 50 mls @ 50 mls/hr IV UD PRN PRN Reason: MG = or < 1.7 Azithromycin 500 mg/ Dextrose 250 mls @ 250 mls/hr IV Q24H [facility]; Protocol Stop: 05/31/21 15:59 Last Infusion: 05/30/21 10:10 Dose: Infused Documented by: Insulin Human Lispro (Insulin Lispro 1 Unit/0.01 Ml Unit) 0 unit SQ ACHS [facility]; Protocol Last Admin: 05/30/21 08:10 Dose: 2 units Documented by: Iron Carb/Multivit/[place]/Folic Acid (Multivit,Ther Iron,Ca,Fa & Min 1 Tablet) 1 tab PO DAILY [facility] Last Admin: 05/30/21 08:10 Dose: 1 tab Documented by: Lorazepam (Lorazepam 1 Mg Tablet) 1 mg PO DAILYP PRN PRN Reason: ANXIETY/SEDATION Melatonin (Melatonin 3 Mg Tablet) 3 mg PO HSP PRN PRN Reason: Insomnia Metoprolol Tartrate (Metoprolol Tartrate 5 Mg/5 Ml Vial) 5 mg IV Q5M PRN PRN Reason: Heart Rate > 140 bpm Ondansetron HCl (Ondansetron 4 Mg Odt Tablet) 4 mg SL Q4-6HP PRN; Protocol PRN Reason: Nausea And Vomiting Ondansetron HCl (Ondansetron 4 Mg/2 Ml Vial) 4 mg IV Q4-6HP PRN; Protocol PRN Reason: Nausea And Vomiting Polyethylene Glycol (Polyethylene Glycol 3350 17 Gm Packet) 17 gm PO DAILYP PRN PRN Reason: Constipation Potassium Chloride (Potassium Chloride 20 Meq Packet) 40 meq PO DAILYP PRN PRN Reason: K+ < 3.5 Potassium Chloride (Potassium Chloride 10 Meq Tablet) 10 meq PO [facility] Last Admin: 05/30/21 08:10 Dose: 10 meq Documented by: Senna/Docusate Sodium (Sennosides/Docusate Sodium 1 Tab Tablet) 1 tab PO [facility] Last Admin: 05/29/21 21:47 Dose: 1 tab Documented by: Simvastatin (Simvastatin 20 Mg Tablet) 20 mg PO QPM [facility] Last Admin: 05/29/21 21:46 Dose: 20 mg Documented by: Sitagliptin Phosphate (Sitagliptin 100 Mg Tablet) 100 mg PO DAILY [facility] Last Admin: 05/30/21 08:10 Dose: 100 mg Documented by: Sodium Chloride (0.9 % Sodium Chloride 10 Ml Syringe) 10 ml IV Q8 [facility] Last Admin: 05/30/21 04:00 Dose: 10 ml Documented by: Tamsulosin HCl (Tamsulosin 0.4 Mg Capsule) 0.8 mg PO [facility] Last Admin: 05/29/21 21:46 Dose: 0.8 mg Documented by: Tiotropium [place] (Tiotropium [place] 18 Mcg Inhalant) 18 mcg INH DAILY [facility] Last Admin: 05/30/21 09:25 Dose: 18 mcg Documented by: Zolpidem Tartrate (Zolpidem 5 Mg Tablet) 10 mg PO HSP PRN PRN Reason: Insomnia A/P Narrative A/P Narrative: * Suspected COVID-19 pneumonia-PCR negative. On empiric antibiotic/bronchodilators/supplemental oxygen. * Acute respiratory failure with hypoxia on nasal cannula oxygen, pulmonary toilet/bronchodilators, await echocardiogram * History of DM type II continue basal prandial insulin * History of CKD stage IV, continue monitor renal function and avoid nephrotoxins * Hyperlipidemia continue statin * BPH continue tamsulosin/finasteride * Prophylaxis heparin Plan * Continue antibiotic coverage * Supplemental oxygen * Await echocardiogram * Pre-existing medical condition management as above * Nutrition support/therapies * Discharge planning Time Spent With Patient Time: Total time spent is greater than 50% in coordination of care (as documented) at patient's floor/unit and/or counseling patient:
[2021-05-30] MEDS ORDERED: INSULIN LISPRO 1 UNIT/0.01 ML UNIT SQ SCH (11:41)
[2021-05-30] MEDS: FUROSEMIDE 20 MG/2 ML VIAL IV SCH (12:27)
--- NOTE | 2021-05-30 16:48 | EKG ---
[facility] Test Date: 2021-05-29 Pat Name: Manny Flaherty Department: ED Room: Gender: Male [employer]itness Services Manager: SE : 1935 Requested By: Luis Fernando Vines Order Number: [id number] Reading MD: Zan Zurita Measurements Intervals [place] Rate: 77 P: 38 CT: 190 QRS: 19 QRSD: 110 T: 53 QT: 450 QTc: 510 Interpretive Statements Sinus rhythm RSR' in V1 or V2, right VCD or RVH Borderline ST depression, lateral leads Prolonged QT interval Electronically Signed On 05-30-2021 16:47:57 PST by Zan Zurita /store/[email or web address]/[id number]
[2021-05-30] MEDS: SENNOSIDES/DOCUSATE SODIUM 1 TAB TABLET PO SCH (21:12)
[2021-05-30] MEDS: TAMSULOSIN 0.4 MG CAPSULE PO SCH (21:12)
[2021-05-30] MEDS: SIMVASTATIN 20 MG TABLET PO SCH (21:12)
[2021-05-31] MEDS: IPRATROPIUM/ALBUTEROL 3 ML AMPUL.NEB NEB SCH ×5 (04:08→18:47)
[2021-05-31] MEDS: 0.9 % SODIUM CHLORIDE 10 ML SYRINGE IV SCH ×3 (04:09→20:04)
[2021-05-31] MEDS: hydrALAZINE 20 MG/ML VIAL IV PRN (04:26)
[2021-05-31 07:16] LABS: Basophils # (Auto) 0.02 K/mcL (0.00-0.30); Basophils % (Auto) 0.4 % (0.0-2.0); Eosinophils # (Auto) 0.23 K/mcL (0.00-0.70); Eosinophils % (Auto) 4.6 % (0.0-7.0); Hematocrit 32.3 % (40.1-51.0); Hemoglobin 10.4 g/dL (13.7-17.5); Lymphocytes # (Auto) 0.92 K/mcL (1.50-4.80); Lymphocytes % (Auto) 18.3 % (15.5-49.0); Mean Cell Volume 96.4 fL (80.0-100.0); Mean Corpuscular HGB Conc 32.2 g/dL (31.0-36.0); Mean Platelet Volume 10.7 fL (7.4-10.4); Monocytes % (Auto) 13.9 % (1.0-12.0); Neutrophils % (Auto) 62.8 % (38.0-78.0); Platelet Count 125 K/mcL (140-440); RBC 3.35 M/mcL (4.63-6.08); Red Cell Distribution Width 12.4 % (11.5-14.5)
[2021-05-31 07:24] LABS: ALT/SGPT 14 U/L (<40); AST/SGOT 24 U/L (<40); Albumin 3.2 gm/dL (3.2-5.2); Albumin/Globulin Ratio 1.2 (1.0-2.3); Alkaline Phosphatase 59 U/L (39-117); Bilirubin,Direct < 0.2 mg/dL (0-0.3); Bilirubin,Total 0.5 mg/dL (0.1-1.0); Blood Urea Nitrogen 45 mg/dL (8-23); Calcium 8.8 mg/dL (8.6-10.4); Carbon Dioxide 24 mmol/L (22-30); Chloride 100 mmol/L (96-108); Globulin 2.7 gm/dL (2.2-3.7); Glomerular Filtration Rate 15; Glucose 182 mg/dL (70-105); Lactate Dehydrogenase 238 U/L (135-225); Phosphorous 4.8 mg/dL (2.5-4.5); Triglycerides 69 mg/dL (<150)
[2021-05-31] MEDS: HEPARIN 5,000 UNIT/ML VIAL SQ SCH ×2 (08:29→20:39)
[2021-05-31] MEDS: sitaGLIPtin 100 MG TABLET PO SCH (08:30)
[2021-05-31] MEDS: TIOTROPIUM BROMIDE 18 MCG INHALANT INH SCH (08:30)
[2021-05-31] MEDS: POTASSIUM CHLORIDE 10 MEQ TABLET PO SCH (08:30)
[2021-05-31] MEDS: DOCUSATE SODIUM 100 MG CAPSULE PO SCH ×2 (08:30→20:39)
[2021-05-31] MEDS: FUROSEMIDE 20 MG/2 ML VIAL IV SCH (08:30)
[2021-05-31] MEDS: MULTIVIT,THER IRON,CA,FA & MIN 1 TABLET PO SCH (08:30)
[2021-05-31] MEDS: FINASTERIDE 5 MG TABLET PO SCH (08:31)
[2021-05-31] MEDS: INSULIN LISPRO 1 UNIT/0.01 ML UNIT SQ SCH ×4 (08:31→20:40)
[2021-05-31] MEDS: ASPIRIN 81 MG TAB.CHEW PO SCH (08:31)
[2021-05-31] MEDS: AZITHROMYCIN 500 MG in DEXTROSE 5% IN WATER 250 ML IV SCH (09:14)
[2021-05-31] MEDS ORDERED: METOPROLOL SUCCINATE 25 MG TAB.XL.24H PO ONE (10:56)
--- NOTE | 2021-05-31 10:56 | Internal Med Progress Note ---
SUBJECTIVE Subjective Patient information: Note initiated : 05/31/21 at 10:52 am Service Date, if different from initiated Date: [] Patient: Manny Flaherty 85 y/o M admitted on 05/29/21 for shortness of breath. Chief Complaint: [] Interval history: Mr. Flaherty is a 85 year old M with a history of DM type II/HLD/HTN/BPH who presents to the ER with 5 days onset of worsening shortness of breath, malaise, weakness, runny nose, body ache nausea and loss of appetite. Patient endorses to subjective fever but denies shaking chills, rash, diarrhea, joint pain or photophobia. With worsening symptoms and inability to function he presents to the urgent care for evaluation. After initial evaluation he was discharged on doxycycline for suspected pneumonia. However his symptoms continue to persist with increasing shortness of breath and he returns to ER today. Repeat work-up was consistent with hypoxia requiring 3 L oxygen and worsening renal function. CT chest consistent with bilateral effusion/basilar infiltrates. Patient was started on diuretics in light of elevated BNP Hospitalist service was consulted in light of suspected pneumonia/CHF and hypoxic respiratory failure At the time of my evaluation patient is alert and oriented. He was able to endorse history as above. He denies sick contacts but endorses to URI symptom including runny nose. He denies changes in medications. 05/30-patient feels a lot better this morning. Improved shortness of breath on 1 L oxygen, patient denies lightheadedness weakness shaking chills or fever. COVID-19/influenza test negative. White count 4.6, creatinine 3.3, pro-Ramiro 0.45, continue supportive treatments. 05/31-patient doing a lot better. Trial off oxygen today. Ambulating, sophie ating diet. Feels a lot better. No overnight fever chills or concerns per staff. Extended viral respiratory panel negative, systolics elevated Constitutional Vitals: Vital Signs Temp Pulse Resp BP Pulse Ox 97.9 F 79 16 179/80 94 05/31/21 07:01 05/31/21 08:40 05/31/21 08:40 05/31/21 07:01 05/31/21 08:40 Period Temp Pulse Resp BP Sys/Conrad Pulse Ox Last 24 Hr 97.4 F-98.6 F 68-81 16-22 125-205/64-91 91-98 Intake and Output 05/30/21 05/31/21 05/31/21 21:59 05:59 13:59 Intake Total 900 550 Output Total 676 231 300 Balance 224 319 -300 Weight 123.15 kg alert oriented Nonlabored No anxiety On 1 L oxygen Intake & Output: Intake & Output 05/30/21 05/31/21 05/31/21 21:59 05:59 13:59 Intake Total 900 550 Output Total 676 231 300 Balance 224 319 -300 Weight 123.15 kg Intake: Oral 900 550 Output: Void Amount 675 230 300 # of times incontinent of urine 1 1 Other: Meal Breakfast Percent of Meal Consumed 100% Urine Appearance Clear Urine Color Bright Yellow Bright Yellow Urine Odor Normal Stool Size Small # Voids 1 1 # Bowel Movements 1 OBJ DATA Labs CBC & Chem 7: 05/31/21 05:28 05/31/21 05:28 Labs: Abnormal Lab Results 05/31/21 05/31/21 05/30/21 05:28 05:28 12:23 RBC 3.35 L Hgb 10.4 L Hct 32.3 L Plt Count 125 L MPV 10.7 H Neut % (Auto) Lymph % (Auto) [place] % (Auto) 13.9 H Lymph # (Auto) 0.92 L ESR BUN 45 H Creatinine 3.5 H Glucose 182 H Calcium Phosphorus 4.8 H Lactate Dehydrogenase 238 H Troponin T 0.08 H* C-Reactive Protein NT-Pro-B Natriuret Pep Total Protein Albumin Procalcitonin Urine Appearance Urine Protein Urine Glucose (UA) Urine Ketones Ur Leukocyte Esterase Urine WBC Urine Mucus 05/30/21 05/30/21 05/29/21 05:26 05:26 14:00 RBC 3.17 L Hgb 9.9 L Hct 30.9 L Plt Count 115 L MPV 10.7 H Neut % (Auto) Lymph % (Auto) [place] % (Auto) 15.4 H Lymph # (Auto) 1.03 L ESR BUN 38 H Creatinine 3.3 H Glucose 169 H Calcium 8.3 L Phosphorus 4.6 H Lactate Dehydrogenase Troponin T C-Reactive Protein NT-Pro-B Natriuret Pep Total Protein 5.6 L Albumin 2.8 L Procalcitonin 0.45 H Urine Appearance Urine Protein Urine Glucose (UA) Urine Ketones Ur Leukocyte Esterase Urine WBC Urine Mucus 05/29/21 05/29/21 05/29/21 14:00 14:00 07:30 RBC Hgb Hct Plt Count MPV Neut % (Auto) Lymph % (Auto) [place] % (Auto) Lymph # (Auto) ESR 35 H BUN Creatinine Glucose Calcium Phosphorus Lactate Dehydrogenase Troponin T C-Reactive Protein 3.20 H NT-Pro-B Natriuret Pep Total Protein Albumin Procalcitonin Urine Appearance Hazy A Urine Protein 100 A Urine Glucose (UA) 50 A Urine Ketones 5 A Ur Leukocyte Esterase 25 A Urine WBC 5 H Urine Mucus Few A 05/29/21 05/29/21 05/29/21 04:43 04:40 04:30 RBC 3.51 L Hgb 11.4 L Hct 34.0 L Plt Count 130 L MPV 10.6 H Neut % (Auto) 78.7 H Lymph % (Auto) 8.2 L [place] % (Auto) Lymph # (Auto) 0.55 L ESR BUN 40 H Creatinine 3.4 H Glucose 178 H Calcium Phosphorus Lactate Dehydrogenase Troponin T 0.08 H* C-Reactive Protein NT-Pro-B Natriuret Pep 3119.0 H Total Protein Albumin Procalcitonin Urine Appearance Urine Protein Urine Glucose (UA) Urine Ketones Ur Leukocyte Esterase Urine WBC Urine Mucus Meds: Medications Acetaminophen (Acetaminophen 325 Mg Tablet) 650 mg PO Q4-6HP PRN; Protocol PRN Reason: Per Pain Protocol/Fever > 101 Albuterol Sulfate (Albuterol Sulfate 200 Puff Inhaler) 1 - 2 puff INH Q4HP PRN PRN Reason: Shortness Of Breath Albuterol/Ipratropium (Ipratropium/Albuterol 3 Ml Ampul.Neb) 3 ml NEB Q4HRT [facility] Last Admin: 05/31/21 08:39 Dose: 3 ml Documented by: Aspirin (Aspirin 81 Mg Tab.Chew) 81 mg PO DAILY [facility] Last Admin: 05/31/21 08:31 Dose: 81 mg Documented by: Dextrose (Dextrose 50% 50 Ml Vial) 0 ml IV UD PRN PRN Reason: Hypoglycemia Diagnostic Test (Pha) (Accu-Chek 1 Each Strip) 1 each FS ACHS [facility] Last Admin: 05/31/21 06:51 Dose: 1 each Documented by: Docusate Sodium (Docusate Sodium 100 Mg Capsule) 100 mg PO BID [facility] Last Admin: 05/31/21 08:30 Dose: 100 mg Documented by: Finasteride (Finasteride 5 Mg Tablet) 5 mg PO QDAY [facility] Last Admin: 05/31/21 08:31 Dose: 5 mg Documented by: Furosemide (Furosemide 20 Mg/2 Ml Vial) 20 mg IV DAILY [facility] Last Admin: 05/31/21 08:30 Dose: 20 mg Documented by: Glucose (Dextrose 31 Gm Oral.Susp) 15 gm PO PRN PRN PRN Reason: Hypoglycemia Guaifenesin/Codeine Phosphate (Guaifenesin/Codeine 10 Ml Udc) 10 ml PO Q4HP PRN PRN Reason: Cough Heparin Sodium (Porcine) (Heparin 5,000 Unit/Ml Vial) 5,000 unit SQ Q12 [facility] Last Admin: 05/31/21 08:29 Dose: 5,000 unit Documented by: Hydralazine HCl (Hydralazine 20 Mg/Ml Vial) 10 mg IV Q4-6HP PRN PRN Reason: Hypertension Last Admin: 05/31/21 04:26 Dose: 10 mg Documented by: Potassium Chloride 40 meq/ (Dextrose) 520 mls @ 130 mls/hr IV UD PRN PRN Reason: K+ = or < 3.5 Acetaminophen (Ofirmev) 650 mg in 65 mls @ 130 mls/hr IV Q6HP PRN; Protocol PRN Reason: Per Pain Protocol/Fever > 101 Magnesium Sulfate (Magnesium Sulfate) 2 gm in 50 mls @ 50 mls/hr IV UD PRN PRN Reason: MG = or < 1.7 Azithromycin 500 mg/ Dextrose 250 mls @ 250 mls/hr IV Q24H [facility]; Protocol Stop: 05/31/21 15:59 Last Admin: 05/31/21 09:14 Dose: 250 mls/hr Documented by: Insulin Human Lispro (Insulin Lispro 1 Unit/0.01 Ml Unit) 0 unit SQ ACHS [facility]; Protocol Last Admin: 05/31/21 08:31 Dose: 4 units Documented by: Iron Carb/Multivit/[place]/Folic Acid (Multivit,Ther Iron,Ca,Fa & Min 1 Tablet) 1 tab PO DAILY [facility] Last Admin: 05/31/21 08:30 Dose: 1 tab Documented by: Lorazepam (Lorazepam 1 Mg Tablet) 1 mg PO DAILYP PRN PRN Reason: ANXIETY/SEDATION Melatonin (Melatonin 3 Mg Tablet) 3 mg PO HSP PRN PRN Reason: Insomnia Metoprolol Tartrate (Metoprolol Tartrate 5 Mg/5 Ml Vial) 5 mg IV Q5M PRN PRN Reason: Heart Rate > 140 bpm Ondansetron HCl (Ondansetron 4 Mg Odt Tablet) 4 mg SL Q4-6HP PRN; Protocol PRN Reason: Nausea And Vomiting Ondansetron HCl (Ondansetron 4 Mg/2 Ml Vial) 4 mg IV Q4-6HP PRN; Protocol PRN Reason: Nausea And Vomiting Polyethylene Glycol (Polyethylene Glycol 3350 17 Gm Packet) 17 gm PO DAILYP PRN PRN Reason: Constipation Potassium Chloride (Potassium Chloride 20 Meq Packet) 40 meq PO DAILYP PRN PRN Reason: K+ < 3.5 Potassium Chloride (Potassium Chloride 10 Meq Tablet) 10 meq PO [facility] Last Admin: 05/31/21 08:30 Dose: 10 meq Documented by: Senna/Docusate Sodium (Sennosides/Docusate Sodium 1 Tab Tablet) 1 tab PO [facility] Last Admin: 05/30/21 21:12 Dose: 1 tab Documented by: Simvastatin (Simvastatin 20 Mg Tablet) 20 mg PO QPM [facility] Last Admin: 05/30/21 21:12 Dose: 20 mg Documented by: Sitagliptin Phosphate (Sitagliptin 100 Mg Tablet) 100 mg PO DAILY [facility] Last Admin: 05/31/21 08:30 Dose: 100 mg Documented by: Sodium Chloride (0.9 % Sodium Chloride 10 Ml Syringe) 10 ml IV Q8 [facility] Last Admin: 05/31/21 04:09 Dose: 10 ml Documented by: Tamsulosin HCl (Tamsulosin 0.4 Mg Capsule) 0.8 mg PO [facility] Last Admin: 05/30/21 21:12 Dose: 0.8 mg Documented by: Tiotropium [place] (Tiotropium [place] 18 Mcg Inhalant) 18 mcg INH DAILY [facility] Last Admin: 05/31/21 08:30 Dose: 18 mcg Documented by: Zolpidem Tartrate (Zolpidem 5 Mg Tablet) 10 mg PO [facility] PRN PRN Reason: Insomnia A/P Narrative A/P Narrative: * Suspected COVID-19 pneumonia-PCR negative. On empiric antibiot ic/bronchodilators/supplemental oxygen. * Acute respiratory failure with hypoxia on nasal cannula oxygen, * History of DM type II continue basal prandial insulin * History of CKD stage IV, continue monitor renal function and avoid nephrotoxins * Elevated blood pressure, start beta-clayton * Hyperlipidemia continue statin * BPH continue tamsulosin/finasteride * Prophylaxis heparin Plan * Continue antibiotic coverage * Supplemental oxygen * Start beta-clayton * Pre-existing medical condition management as above * Nutrition support/therapies * Discharge planning Time Spent With Patient Time: Total time spent is greater than 50% in coordination of care (as documented) at patient's floor/unit and/or counseling patient:
[2021-05-31] MEDS ORDERED: TAMSULOSIN 0.4 MG CAPSULE PO ONE (16:00)
[2021-05-31] MEDS ORDERED: IPRATROPIUM/ALBUTEROL 3 ML AMPUL.NEB NEB PRN (19:10)
[2021-05-31] MEDS: SIMVASTATIN 20 MG TABLET PO SCH (20:39)
[2021-05-31] MEDS: SENNOSIDES/DOCUSATE SODIUM 1 TAB TABLET PO SCH (20:39)
[2021-06-01] MEDS: TAMSULOSIN 0.4 MG CAPSULE PO SCH ×2 (00:09→08:54)
[2021-06-01] MEDS: hydrALAZINE 20 MG/ML VIAL IV PRN (00:21)
[2021-06-01] MEDS: 0.9 % SODIUM CHLORIDE 10 ML SYRINGE IV SCH ×2 (00:21→04:01)
[2021-06-01] MEDS ORDERED: IPRATROPIUM/ALBUTEROL 3 ML AMPUL.NEB NEB ONE (03:34)
[2021-06-01 07:42] LABS: Basophils # (Auto) 0.02 K/mcL (0.00-0.30); Basophils % (Auto) 0.4 % (0.0-2.0); Eosinophils # (Auto) 0.11 K/mcL (0.00-0.70); Eosinophils % (Auto) 2.1 % (0.0-7.0); Hematocrit 31.9 % (40.1-51.0); Hemoglobin 10.2 g/dL (13.7-17.5); Lymphocytes # (Auto) 0.55 K/mcL (1.50-4.80); Lymphocytes % (Auto) 10.4 % (15.5-49.0); Mean Cell Volume 96.1 fL (80.0-100.0); Mean Platelet Volume 11.1 fL (7.4-10.4); Monocytes # (Auto) 0.68 K/mcL (0.10-0.90); Monocytes % (Auto) 12.9 % (1.0-12.0); Neutrophils % (Auto) 74.2 % (38.0-78.0); Platelet Count 143 K/mcL (140-440); RBC 3.32 M/mcL (4.63-6.08); Red Cell Distribution Width 12.4 % (11.5-14.5); WBC 5.3 K/mcL (4.5-11.0)
[2021-06-01 08:05] LABS: ALT/SGPT 17 U/L (<40); AST/SGOT 32 U/L (<40); Albumin 3.1 gm/dL (3.2-5.2); Albumin/Globulin Ratio 1.1 (1.0-2.3); Alkaline Phosphatase 75 U/L (39-117); Bilirubin,Direct < 0.2 mg/dL (0-0.3); Bilirubin,Total 0.6 mg/dL (0.1-1.0); Blood Urea Nitrogen 43 mg/dL (8-23); Calcium 8.9 mg/dL (8.6-10.4); Carbon Dioxide 23 mmol/L (22-30); Chloride 101 mmol/L (96-108); Globulin 2.8 gm/dL (2.2-3.7); Glomerular Filtration Rate 14; Glucose 183 mg/dL (70-105); Lactate Dehydrogenase 304 U/L (135-225); Phosphorous 3.7 mg/dL (2.5-4.5); Triglycerides 57 mg/dL (<150); Uric Acid 7.3 mg/dL (2.5-8.0)
[2021-06-01] MEDS: MULTIVIT,THER IRON,CA,FA & MIN 1 TABLET PO SCH (08:54)
[2021-06-01] MEDS: FINASTERIDE 5 MG TABLET PO SCH (08:54)
[2021-06-01] MEDS: INSULIN LISPRO 1 UNIT/0.01 ML UNIT SQ SCH ×2 (08:54→12:06)
[2021-06-01] MEDS: ASPIRIN 81 MG TAB.CHEW PO SCH (08:55)
[2021-06-01] MEDS: DOCUSATE SODIUM 100 MG CAPSULE PO SCH (08:55)
[2021-06-01] MEDS: POTASSIUM CHLORIDE 10 MEQ TABLET PO SCH (08:56)
[2021-06-01] MEDS: HEPARIN 5,000 UNIT/ML VIAL SQ SCH (08:57)
[2021-06-01] MEDS: FUROSEMIDE 20 MG/2 ML VIAL IV SCH (08:57)
[2021-06-01] MEDS: sitaGLIPtin 100 MG TABLET PO SCH (08:57)
[2021-06-01] MEDS ORDERED: METOPROLOL SUCCINATE 25 MG TAB.XL.24H PO SCH (09:00)
--- NOTE | 2021-06-01 11:07 | Discharge Summary ---
Discharge Provider Provider Patient information: Note initiated : 06/01/21 at 11:04 am Service Date, if different from initiated Date: [] Patient: Manny Flaherty 85 y/o M admitted on 05/29/21 for shortness of breath. Chief Complaint: [] Date of admission: 05/29/21 13:42 Discharge date: 06/01/21 Primary care physician: Yovanny Higuera Consults: 05/29/21 Consult to Physician [CONS] Stat Comment: Consulting Provider: Mehran Nguyen Reason For Exam: Physician to Consult Discharge Meds Discharge Medications Home Medications Humulin 70/30 See Protocol SUB-Q TID 12/14/14 [History Confirmed 05/29/21 Last Taken Unknown] aspirin 81 mg tablet,delayed release 81 mg PO QDAY tab 12/14/14 [History Confirmed 05/29/21 Last Taken Unknown] blood sugar diagnostic, disc 12/14/14 [History Confirmed 05/28/21 Last Taken U nknown] ferrous sulfate 325 mg (65 mg iron) tablet,delayed release 325 mg PO BID tab 12/14/14 [History Confirmed 05/29/21 Last Taken Unknown] lorazepam 1 mg tablet 1 mg PO .as directed PRN tab 12/14/14 [History Confirmed 05/29/21 Last Taken Unknown] simvastatin 20 mg tablet 20 mg PO QPM tab 12/14/14 [History Confirmed 05/29/21 Last Taken Unknown] finasteride 5 mg tablet 5 mg PO QDAY 90 Days #90 tab 01/29/21 [Rx Confirmed 05/29/21 Last Taken Unknown] tamsulosin 0.4 mg capsule 0.8 mg PO Q24H #180 cap 02/16/21 [Rx Confirmed 05/29/21 Last Taken Unknown] zolpidem 10 mg tablet 10 mg PO QHS PRN tab 02/16/21 [History Confirmed 05/29/21 Last Taken 05/28/21] ondansetron 8 mg disintegrating tablet 8 mg PO Q8H PRN #10 tab 05/28/21 [Rx Confirmed 05/29/21 Last Taken Unknown] insulin aspar prt-insulin aspart 100 unit/mL (70-30) subcutaneous soln 45 unit SUBCUT BID 05/30/21 [History Confirmed 05/30/21 Last Taken 05/28/21] metoprolol succinate 25 mg tablet,extended release 24 hr 25 mg PO DAILY #30 tab 06/01/21 [Rx Last Taken Unknown] COURSE Hospital Course Hospital course: Discharge diagnosis * Acute viral syndrome with suspected [id number] PCR negative. Clinically improved on empiric antibiotic/bronchodilators/supplemental oxygen. * Acute respiratory failure with hypoxia -weaned off oxygen now on room air * History of DM type II continue basal prandial insulin * History of CKD stage IV, creatinine at baseline. Recommend outpatient follow- up with nephrology * Elevated blood pressure, continue beta-clayton. Echocardiogram normal EF * Hyperlipidemia continue statin * BPH continue tamsulosin/finasteride Brief hospital course Mr. Flaherty is a 85 year old M with a history of DM type II/HLD/HTN/BPH who presents to the ER with 5 days onset of worsening shortness of breath, malaise, weakness, runny nose, body ache nausea and loss of appetite. Patient endorses to subjective fever but denies shaking chills, rash, diarrhea, joint pain or photophobia. With worsening symptoms and inability to function he presents to the urgent care for evaluation. After initial evaluation he was discharged on doxycycline for suspected pneumonia. However his symptoms continue to persist with increasing shortness of breath and he returns to ER today. Repeat work-up was consistent with hypoxia requiring 3 L oxygen and worsening renal function. CT chest consistent with bilateral effusion/basilar infiltrates. Patient was started on diuretics in light of elevated BNP Hospitalist service was consulted in light of suspected pneumonia/CHF and hypoxic respiratory failure At the time of my evaluation patient is alert and oriented. He was able to endorse history as above. He denies sick contacts but endorses to URI symptom including runny nose. He denies changes in medications. 05/30-patient feels a lot better this morning. Improved shortness of breath on 1 L oxygen, patient denies lightheadedness weakness shaking chills or fever. COVID-19/influenza test negative. White count 4.6, creatinine 3.3, pro-Ramiro 0.45, continue supportive treatments. 05/31-patient doing a lot better. Trial off oxygen today. Ambulating, tolerating diet. Feels a lot better. No overnight fever chills or concerns per staff. Extended viral respiratory panel negative, systolics elevated 06/01-patient doing well. No overnight events. Responded well to metoprolol. Echocardiogram normal EF. Now on room air. Completed antibiotics. Discharging home with advised to follow-up with nephrology as outpatient for management of chronic kidney disease. Follow-up PCP in 5 to 7 days. Discharge diagnosis: Acute viral syndrome Time Spent with Patient Time attestation: Total time spent providing and/or coordinating discharge services: EXAM Constitutional Vitals: Temp Pulse Resp BP Pulse Ox 99.6 F H 80 17 138/62 91 06/01/21 07:20 06/01/21 07:20 06/01/21 07:20 06/01/21 07:20 06/01/21 07:20 Discharge Data Data Completed and Pending Labs on day of discharge: Labs from last 24 hours 06/01/21 06/01/21 06:14 06:14 WBC 5.3 RBC 3.32 L Hgb 10.2 L Hct 31.9 L MCV 96.1 MCH 30.7 MCHC 32.0 RDW 12.4 Plt Count 143 MPV 11.1 H Neut % (Auto) 74.2 Lymph % (Auto) 10.4 L [place] % (Auto) 12.9 H Eos % (Auto) 2.1 Baso % (Auto) 0.4 Lymph # (Auto) 0.55 L [place] # (Auto) 0.68 Eos # (Auto) 0.11 Baso # (Auto) 0.02 Absolute Neutrophils 3.92 Sodium 138 Potassium 4.1 Chloride 101 Carbon Dioxide 23 Anion Gap 14.0 BUN 43 H Creatinine 3.6 H GFR Calculation 14 Glucose 183 H Uric Acid 7.3 Calcium 8.9 Phosphorus 3.7 Magnesium 2.4 Total Bilirubin 0.6 Direct Bilirubin < 0.2 GGT 11 AST 32 ALT 17 Alkaline Phosphatase 75 Lactate Dehydrogenase 304 H Total Protein 5.9 Albumin 3.1 L Globulin 2.8 Albumin/Globulin Ratio 1.1 Triglycerides 57 Preliminary micro results at discharge 05/29/21 04:40 Blood Culture - Preliminary Blood 05/29/21 01:30 Blood Culture - Preliminary Blood Discharge Plan Patient/Caregiver Discharge Instructions Activity: increase activity as tolerated Diet: Renal/Consistent Carbs Prescriptions: New metoprolol succinate 25 mg Tablet Extended Release 24 Hr 25 mg PO DAILY Qty: 30 0RF Continued finasteride 5 mg tablet 5 mg PO QDAY 90 Days Qty: 90 6RF aspirin 81 mg tablet,delayed release (DR/EC) 81 mg PO QDAY 0RF simvastatin 20 mg tablet 20 mg PO QPM 0RF lorazepam 1 mg tablet 1 mg PO .as directed PRN (Reason: Anxiety) 0RF Rx Instructions: 1 mg PO .as directed PRN (DME) blood sugar diagnostic, disc strip See Dose Instructions .ROUTE .MEDSUPPLY 0RF Rx Instructions: As directed Humulin 70/30 See Protocol bottle SUB-Q TID 0RF Protocol: Insulin Sliding Scale, Low Condition: HUMALOG/NOVALOG SC SLIDING Dose/Route: SCALE Condition: FSBS < 70 Dose/Route: Give 4 Oz juice, or 15gm oral Instruction: Glucose, or 25ml D50W IV if Dose/Route: unable to take PO. Recheck in Instruction: 15 min and repeat if FSBS < 70 Condition: FSBS 71-140 Dose/Route: NO COVERAGE Condition: FSBS 141-170 Dose/Route: 1 UNITS Condition: FSBS 171-200 Dose/Route: 2 UNITS Condition: FSBS 201-250 Dose/Route: 3 UNITS Condition: FSBS 251-300 Dose/Route: 4 UNITS Condition: FSBS 301-350 Dose/Route: 6 UNITS Condition: FSBS 351-400 Dose/Route: 8 UNITS Condition: FSBS > 400 Dose/Route: 10 UNITS; REPEAT Q2H X2 Instruction: CONTINUE FOLLOWING SLIDING Condition: SCALE; IF STILL > 400; CALL Dose/Route: PHYSICIAN Label Comments: as per insulin protocol ferrous sulfate 325 mg (65 mg iron) tablet,delayed release (DR/EC) 325 mg PO BID 0RF zolpidem 10 mg tablet 10 mg PO QHS PRN (Reason: Insomnia) 0RF ondansetron 8 mg tablet,disintegrating 8 mg PO Q8H PRN (Reason: nausea and vomiting) Qty: 10 0RF insulin asp prt-insulin aspart 100 unit/mL (70-30) solution 45 unit SUBCUT BID 0RF tamsulosin 0.4 mg capsule 0.8 mg PO Q24H Qty: 180 3RF Discontinued doxycycline monohydrate 100 mg capsule 100 mg PO BID 7 Days Qty: 14 0RF Rx Instructions: Take with food. Follow Up Plan Follow up with: Yovanny Higuera MD [Primary Care Provider] - Patient Disposition: Home, Self-Care Rehab Potential: Fair I certify that the patient requires SNF services: No Overall status at discharge: patient is not back to baseline Discharge Orders: Discharge Order (Routine); Ordered 06/01/21 Ordered By: Mehran Nguyen
--- NOTE | 2021-06-02 13:51 | Emergency Department Note ---
ED Note Addendum Note Addendum: Correction: The patient was admitted.
== END 2021-06-01 14:40 | disposition home or self-care (01) | DRG 865 ==
LOC: ED 03:52 → MEDSUR 13:42
PROVIDERS: ADMIT Internal Medicine; ATTEND Internal Medicine